=== PATIENT | female | born 1995 | race Two or more races ===

== ENCOUNTER 2024-01-16 16:45 | Emergency (ER) | payer MEDICAID ==
[2024-01-16 16:59] VITALS: BP 128/69; O2SAT 99
--- NOTE | 2024-01-16 17:10 | ED Physician Documentation ---
History of Present Illness - Stated complaint Stated Complaint: RASH - Chief complaint Chief Complaint: General - History obtained from History obtained from: Patient - History of Present Illness Timing: How many days ago (several days) Pain level max: 0 Pain level now: 0 - Additonal information Additional information: 28-year-old female presents to the emergency department complaining of vulvar itching for the past few days. She states that she has had a new sexual partner. No STD exposure that she is aware of. No vesicles or pustules. No vaginal bleeding, discharge. The itching is all external. She states she noticed a slight red rash as well. Has not taken anything for this. No pelvic pain. No abdominal pain. 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 - Present Medications Home Medications: Ambulatory Orders Medication Instructions Recorded Confirmed predniSONE [Deltasone] 40 mg PO DAILY #10 tablet 01/16/24 - Allergies Allergies/Adverse Reactions: Allergies Allergy/AdvReac Type Severity Reaction Status Date / Time No Known Drug Allergies Allergy Verified 01/16/24 16:56 - Social History Does the pt smoke?: No Smoking Status: Never smoker Does the pt drink ETOH?: Yes Does the pt have substance abuse?: Yes Substance Use and Type: Marijuana - Immunizations Immunizations are current?: No PD ED PE NORMAL - Vitals Vital signs reviewed: Yes - General General: Alert and oriented X 3, No acute distress - HEENT HEENT: Moist mucous membranes - Neck Neck: Supple, no meningeal sign - Abdomen Abdomen: Soft - Female 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 There is no visible rash internally on the vulva. There is no discharge. There are no pustules, vesicles or sores. There is no lymphadenopathy.) - Derm Derm: Warm and dry - Neuro Neuro: Alert and oriented X 3 Results - Vitals Vitals: Vital Signs - 24 hr 01/16/24 16:51 Temperature 36.3 C L Heart Rate 64 Respiratory 15 Rate Blood Pressure 128/69 O2 Saturation 99 Oxygen O2 Source Room air PD Medical Decision Making - ED course Complexity details: considered differential, d/w patient ED course: Patient with what appears to be a nonspecific dermatitis, likely contact rash to the mainly right vulva. She is not having any vaginal symptoms of internal itching or discharge. She declines a pelvic exam at this time, therefore an external exam was performed. Will place on oral steroids for home, presume allergic reaction versus contact dermatitis. Patient will return if she fails to improve as expected. There are no vesicles, sores or pustules. Patient counseled regarding signs and symptoms for which I believe and urgent re- evaluation would be necessary. Patient with good understanding of and agreement to plan and is comfortable going home at this time This document was made in part using voice recognition software. While efforts are made to proofread this document, sound alike and grammatical errors may occur. Departure - Departure Disposition: 01 Home, Self Care Clinical Impression: Contact dermatitis Qualifiers: Contact dermatitis type: unspecified Contact dermatitis trigger: unspecified trigger Qualified Code(s): L25.9 - Unspecified contact dermatitis, unspecified cause Condition: Good Instructions: ED Dermatitis Non Specific Rash Follow-Up: your,doctor as needed [Other] Prescriptions: predniSONE [Deltasone] 40 mg PO DAILY #10 tablet Comments: [facility] in [place]. Please use the steroids as instructed. Please return if your symptoms worsen or fail to improve as expected. The cause of your rash is unclear, but appears to be a contact rash. You can use Benadryl, Zyrtec or Claritin as needed for itching. Forms: PCP List
== END 2024-01-16 17:18 | disposition home or self-care (01) ==
LOC: ED 16:45
DX: L25.9 Unspecified contact dermatitis, unspecified cause (principal)
CPT/HCPCS: 99282; 99283

== ENCOUNTER 2024-01-25 22:45 | Emergency (ER) | payer MEDICAID ==
[2024-01-25 23:04] VITALS: BP 135/74; O2SAT 100
[2024-01-25 23:17] LABS: BILIRUBIN,URINE NEGATIVE (NEGATIVE); GLUCOSE, URINE (UA) NEGATIVE (NEGATIVE); KETONES,URINE (UA) NEGATIVE (NEGATIVE); LEUKOCYTE ESTERASE, URINE NEGATIVE (NEGATIVE); NITRITE,URINE NEGATIVE (NEGATIVE); OCCULT BLOOD,URINE NEGATIVE (NEGATIVE); PROTEIN,URINE NEGATIVE (NEGATIVE); UROBILINOGEN,URINE 0.2 (NORMAL) E.U./dL (NORMAL)
[2024-01-25 23:20] LABS: CLARITY,URINE CLEAR (CLEAR)
[2024-01-25 23:23] LABS: HCG UR QUAL NEGATIVE
--- NOTE | 2024-01-26 10:15 | ED Physician Documentation ---
History of Present Illness - Stated complaint Stated Complaint: CHILLS/BACK PX - Chief complaint Chief Complaint: Back Pain - History obtained from History obtained from: Patient - Additonal information Additional information: HPI from patient. Patient c/o generalized paresthesias described as "pins and needles" (per patient), right flank pain described as sharp and episodic, chills without diaphoresis, and generalized weakness. Symptoms were of gradual onset earlier this evening without inciting event and have mostly resolved by the time of this H+P; she says only the right flank pain persists although nearly resolved. Denies h/o similar symptoms. Unknown if fevers (did not take temperature at home). Denies abdominal pain, n/v, cough, dyspnea, dysuria, urinary frequency. Review of Systems Constitutional: reports: Chills, Fatigue. 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 - Present Medications Home Medications: Ambulatory Orders Medication Instructions Recorded Confirmed No Known Home Medications 01/25/24 01/25/24 - Allergies Allergies/Adverse Reactions: Allergies Allergy/AdvReac Type Severity Reaction Status Date / Time No Known Drug Allergies Allergy Verified 01/25/24 22:55 - Social History Does the pt smoke?: No Smoking Status: Never smoker Does the pt drink ETOH?: Yes Does the pt have substance abuse?: Yes - Immunizations Immunizations are current?: No PD ED PE NORMAL - Vitals Vital signs reviewed: Yes - General General: Alert and oriented X 3, No acute distress, Well developed/nourished - HEENT HEENT: Moist mucous membranes - Neck Neck: Supple, no meningeal sign - Cardiac Cardiac: RRR, No murmur - Respiratory Respiratory: No respiratory distress, Clear bilaterally - Abdomen Abdomen: Soft, Non tender - Back Back: No CVA TTP Results - Vitals Vitals: Vital Signs - 24 hr 01/25/24 01/25/24 22:46 23:03 Temperature 37.3 C Heart Rate 81 80 Respiratory 16 Rate Blood Pressure 135/74 H O2 Saturation 100 Oxygen O2 Source Room air - Labs Labs: Laboratory Tests 01/25/24 01/25/24 23:08 23:08 Urine Color YELLOW Urine Clarity CLEAR Urine pH 7.0 Ur Specific [place] 1.020 Urine Protein NEGATIVE Urine Glucose (UA) NEGATIVE Urine Ketones NEGATIVE Urine Occult Blood NEGATIVE Urine Nitrite NEGATIVE Urine Bilirubin NEGATIVE Urine Urobilinogen 0.2 (NORMAL) Ur Leukocyte Esterase NEGATIVE Ur Microscopic Review NOT INDICATED Urine Culture Comments NOT INDICATED Urine HCG, Qual NEGATIVE PD Medical Decision Making - ED course Complexity details: considered differential, d/w patient ED course: NAD and normal PE. Symptoms have resolved by the time of this HPI/ROS except for mild right flank pain. UA normal and UHCG negative. No further emergent testing indicated at this time. Results d/w patient, return precautions reviewed. Etiology of symptoms is not apparent at this time. Doubt UTI, pyelonephritis, renal colic (given normal UA). Departure - Departure Disposition: 01 Home, Self Care Clinical Impression: Paresthesia, Flank pain Condition: Good Instructions: ED Flank Pain Uncertain Cause, ED Paraesthesias Comments: Your urinalysis was normal; no indication of infection such as urinary tract infection or kidney infection. Your urine test was negative. The cause of your symptoms is not apparent at this time. If your symptoms worsen, or if you develop new/concerning signs/symptoms (such as fever, vomiting, abdominal pain, shortness of breath) you can always return to the emergency department for reevaluation. Discharge Date/Time: 01/25/24 23:36
== END 2024-01-25 23:36 | disposition home or self-care (01) ==
LOC: ED 22:45
DX: R20.2 Paresthesia of skin (principal); R10.9 Unspecified abdominal pain
CPT/HCPCS: 81001; 81003; 81025; 87086; 99283